=== PATIENT | female | born 1985 | race Caucasian/White ===

== ENCOUNTER 2018-10-10 23:14 | Emergency (ER) | payer OTHER ==
[~2018-10-10] VITALS: Ht 167.6 cm; Wt 82.1 kg
[2018-10-10 23:23] VITALS: BP 131/83; Ht 167.6 cm; Wt 82.1 kg
== END 2018-10-11 02:11 | disposition left against medical advice (07) ==
LOC: ED 23:14
DX: Z53.21 Procedure and treatment not carried out due to patient leaving prior to being seen by health care provider (principal)